=== PATIENT | female | born 1985 | race Caucasian/White ===

== ENCOUNTER 2016-08-26 09:23 | Emergency (ER) | payer OTHER ==
[2016-08-26 10:08] VITALS: BP 123/75
--- NOTE | 2016-08-26 10:11 | UC ---
Respiratory Complaint HPI - HPI Summary HPI Summary: FEVER, CHILLS C 1 DAYS + SORE THROAT , COUGH BODY ACHES - History of Current Complaint Chief Complaint: UCGeneralIllness Stated Complaint: FLU SYMPTOMS Time Seen by Provider: 08/26/16 09:59 Hx Obtained From: Patient Hx Last Menstrual Period: 08/12/16 Onset/Duration: Sudden Onset, Lasting Days - 1, Still Present Timing: Constant Severity Initially: Severe Severity Currently: Severe Character: Cough: Nonproductive Aggravating Factors: Deep Breaths Alleviating Factors: Nothing Associated Signs And Symptoms: Positive: Fever, Chills. Negative: Dyspnea, Pleuritic Chest Pain, Wheezing, Hemoptysis, Dizziness, Calf Pain, Calf Swelling , Edema, URI, Nasal Congestion - Allergies/Home Medications Allergies/Adverse Reactions: Allergies Allergy/AdvReac Type Severity Reaction Status Date / Time No Known Allergies Allergy Verified 03/07/15 13:16 PMH/Surg Hx/FS Hx/Imm Hx Endocrine History Of: Denies: Diabetes, Thyroid Disease Cardiovascular History Of: Denies: Cardiac Disorders, Hypertension Respiratory History Of: Denies: COPD, Asthma GI/ History Of: Denies: Ulcer - Surgical History Surgical History: Yes Surgery Procedure, Year, and Place: LEFT NEPHRECTOMY - Family History Known Family History: Negative: Diabetes - Social History Alcohol Use: Occasionally Substance Use Type: None Smoking Status (MU): Former Smoker Type: Cigarettes Amount Used/How Often: 1/4 ppd Have You Smoked in the Last Year: Yes When Did the Patient Quit Smoking/Using Tobacco: Past year-2016 Review of Systems Constitutional: Fever, Chills, Fatigue Skin: Negative Eyes: Negative ENT: Sore Throat Respiratory: Cough Cardiovascular: Negative Gastrointestinal: Negative Genitourinary: Negative All Other Systems Reviewed And Are Negative: Yes Physical Exam Triage Information Reviewed: Yes Appearance: Well-Nourished, Ill-Appearing Vital Signs: Initial Vital Signs Temp 102 F 08/26/16 09:56 Pulse 106 08/26/16 09:56 Resp 16 08/26/16 09:56 BP 123/75 08/26/16 09:56 Pulse Ox 98 08/26/16 09:56 Vital Signs Reviewed: Yes Eyes: Positive: Conjunctiva Clear ENT: Positive: Normal ENT inspection, Hearing grossly normal, Pharynx normal, TMs normal. Negative: Pharyngeal erythema, Nasal congestion, Nasal drainage Neck: Positive: Supple, Nontender, No Lymphadenopathy Respiratory: Positive: Chest non-tender, Lungs clear, Normal breath sounds Cardiovascular: Positive: Tachycardia Abdominal Exam: Normal Abdomen Description: Positive: Nontender, Soft. Negative: CVA Tenderness (R), CVA Tenderness (L), Distended, Guarding Bowel Sounds: Positive: Present UC Diagnostic Evaluation - Laboratory O2 Sat by Pulse Oximetry: 98 Respiratory Course/Dx - Differential Dx/Diagnosis Provider Diagnoses: INFLUENZA Discharge - Discharge Plan Condition: Stable Disposition: HOME Prescriptions: Oseltamivir Phosphate [Tamiflu] 75 mg PO BID #10 cap Patient Education Materials: Influenza (ED) Referrals: Maximiliano Medina MD [Primary Care Provider] - If Needed
== END 2016-08-26 10:41 | disposition home or self-care (01) ==
LOC: UCCORT 09:23
DX: J11.1 Influenza due to unidentified influenza virus with other respiratory manifestations (principal); Z87.891 Personal history of nicotine dependence
CPT/HCPCS: 87502; 99212; G0463

== ENCOUNTER 2017-03-17 20:57 | Emergency (ER) | payer OTHER ==
[2017-03-17 21:07] VITALS: BP 121/87
--- NOTE | 2017-03-17 21:11 | UC ---
Throat Pain/Nasal Gunner HPI - HPI Summary HPI Summary: 31 YEAR OLD FEMALE PRESENTS WITH COMPLAINS OF SORE THROAT. - History of Current Complaint Chief Complaint: UCRespiratory Stated Complaint: SORE THROAT Time Seen by Provider: 03/17/17 21:11 Hx Last Menstrual Period: 02/26/15 Onset/Duration: Sudden Onset Severity: Moderate Pain Scale Used: 0-10 Numeric - 5 Cough: Nonproductive Associated Signs & Symptoms: Positive: Dysphagia - Allergies/Home Medications Allergies/Adverse Reactions: Allergies Allergy/AdvReac Type Severity Reaction Status Date / Time No Known Allergies Allergy Verified 03/17/17 21:07 Home Medications: Home Medications buPROPion SR TAB* [Wellbutrin SR TAB*] 100 mg PO DAILY 03/17/17 [History Confirmed 03/17/17] PMH/Surg Hx/FS Hx/Imm Hx Previously Healthy: Yes - Surgical History Surgical History: Yes Surgery Procedure, Year, and Place: LEFT NEPHRECTOMY - Family History Known Family History: Negative: Diabetes - Social History Alcohol Use: Occasionally Substance Use Type: None Smoking Status (MU): Light Every Day Tobacco Smoker Type: Cigarettes Amount Used/How Often: 1/4 ppd Have You Smoked in the Last Year: Yes When Did the Patient Quit Smoking/Using Tobacco: Past year-2016 Review of Systems Constitutional: Negative Skin: Negative Eyes: Negative ENT: Negative Respiratory: Negative Cardiovascular: Negative Gastrointestinal: Negative Genitourinary: Negative Motor: Negative Neurovascular: Negative Musculoskeletal: Negative Neurological: Negative Psychological: Negative All Other Systems Reviewed And Are Negative: Yes Physical Exam Triage Information Reviewed: Yes Vital Signs: Initial Vital Signs Temp 36.8 C 03/17/17 21:04 Pulse 96 03/17/17 21:04 Resp 14 03/17/17 21:04 BP 121/87 03/17/17 21:04 Pulse Ox 100 03/17/17 21:04 Eye Exam: Normal ENT: Positive: Pharyngeal erythema, Nasal congestion, Nasal drainage Dental Exam: Normal Neck exam: Normal Neck: Positive: 1 Respiratory Exam: Normal Cardiovascular Exam: Normal Abdominal Exam: Normal Musculoskeletal Exam: Normal Neurological Exam: Normal Psychological Exam: Normal Skin Exam: Normal Throat Pain/Nasal Course/Dx - Differential Dx/Diagnosis Provider Diagnoses: ALLERGIC RHINNITIS. PHARYNGITIS Discharge - Discharge Plan Condition: Stable Disposition: HOME Prescriptions: Amoxicillin PO (*) [Amoxicillin 500 MG CAP*] 500 mg PO TID #30 cap LoraTADine TAB(NF) [Claritin 10 MG TAB(NF)] 10 mg PO DAILY #30 tab Magic M W2 Juan Diego/Maal/Nyst/Lido* 15 ml SWISH SPIT QID #120 ml Patient Education Materials: Pharyngitis (ED) Referrals: Maximiliano Medina MD [Primary Care Provider] - If Needed
[2017-03-17] MEDS ORDERED: Lidocaine 2% VISCOUS* 15 ML UDC SWISH SPIT ONE (21:27)
[2017-03-17] MEDS ORDERED: LoraTADine TAB(NF) 10 MG TAB (AUTOSUB to CETIRIZINE) PO ONE (21:28)
== END 2017-03-17 21:50 | disposition home or self-care (01) ==
LOC: UCCORT 20:57
DX: J30.9 Allergic rhinitis, unspecified (principal); J02.9 Acute pharyngitis, unspecified; F17.210 Nicotine dependence, cigarettes, uncomplicated
CPT/HCPCS: 87651; 99212; A9270-GY; G0463

== ENCOUNTER 2017-12-29 18:40 | Emergency (ER) | payer OTHER ==
[2017-12-29 19:42] VITALS: BP 126/92
--- NOTE | 2017-12-29 19:48 | UC ---
Throat Pain/Nasal Gunner HPI - HPI Summary HPI Summary: 32 yo female presents with sinus pain/pressure/congestion and a painful lump behind her right ear. Has not taken anything OTC. Daughter was recently dx'd with strep. Denies fever, chills, sore throat, cough, SOB, chest pain, weight loss, headache, dizziness, night sweats. Last saw PCP a few weeks ago for a routine appt and had labwork done - but says a CBC was not included. - History of Current Complaint Chief Complaint: UCGeneralIllness Stated Complaint: SINUS CONGESTION Time Seen by Provider: 12/29/17 19:48 Hx Obtained From: Patient Hx Last Menstrual Period: 12/01/17 Onset/Duration: Gradual Onset Severity: Mild Pain Intensity: 4 Pain Scale Used: 0-10 Numeric - Allergies/Home Medications Allergies/Adverse Reactions: Allergies Allergy/AdvReac Type Severity Reaction Status Date / Time No Known Allergies Allergy Verified 12/29/17 19:42 PMH/Surg Hx/FS Hx/Imm Hx Previously Healthy: Yes Psychological History: Anxiety - Surgical History Surgical History: Yes Surgery Procedure, Year, and Place: LEFT NEPHRECTOMY - Family History Known Family History: Negative: Diabetes - Social History Occupation: Employed Full-time Lives: With Family Alcohol Use: Occasionally Substance Use Type: None Smoking Status (MU): Former Smoker Type: Cigarettes Amount Used/How Often: 1/4 ppd Have You Smoked in the Last Year: Yes When Did the Patient Quit Smoking/Using Tobacco: Past year-2016 Review of Systems Constitutional: Negative Skin: Negative Eyes: Negative ENT: Nasal Discharge, Sinus Congestion, Sinus Pain/Tenderness Respiratory: Negative Cardiovascular: Negative Gastrointestinal: Negative Neurovascular: Negative Neurological: Negative Psychological: Negative All Other Systems Reviewed And Are Negative: Yes Physical Exam - Summary Physical Exam Summary: GENERAL: NAD. WDWN. No pain distress. SKIN: No rashes, sores, lesions, or open wounds. HEENT: Head: AT/NC Eyes: Conjunctiva clear without inflammation or discharge. Ears: RIGHT Post-auricular 5mm lymph node mildly TTP. Immobile and hard. No fluctuance, erythema, or induration. Hearing grossly normal. TMs intact , no bulging, erythema, or edema. Nose: Nasal mucosa pink and moist. NTTP maxillary and frontal sinus. Throat: Posterior oropharynx moderate erythema. No tonsillar enlargement. No exudates. Uvula midline. No hoarse voice or muffled voice. NECK: Supple. Nontender. No lymphadenopathy. CHEST: CTAB. No r/r/w. No accessory muscle use. Breathing comfortably and in no distress. CV: RRR. Without m/r/g. Pulses intact. Brisk cap refill. NEURO: Alert. CN II-XII grossly intact. PSYCH: Age appropriate behavior. Triage Information Reviewed: Yes Vital Signs: Initial Vital Signs Temp 99.3 F 12/29/17 19:36 Pulse 94 12/29/17 19:36 Resp 18 12/29/17 19:36 BP 126/92 12/29/17 19:36 Pulse Ox 100 12/29/17 19:36 Throat Pain/Nasal Course/Dx - Course Course Of Treatment: POC strep negative. Draw for CBC and monitor lymph node - if no improvement schedule a f/u with PCP. - Differential Dx/Diagnosis Provider Diagnoses: Pharyngitis. Enlarged post auricular lymph node Discharge - Sign-Out/Discharge Documenting (check all that apply): Discharge/Admit/Transfer - Discharge Plan Condition: Stable Disposition: HOME Prescriptions: Amoxicillin PO (*) [Amoxicillin 500 MG CAP*] 500 mg PO Q12H #20 cap Patient Education Materials: Sinusitis (ED) Referrals: Maximiliano Medina MD [Primary Care Provider] - Additional Instructions: If you develop a fever, shortness of breath, chest pain, new or worsening symptoms - please call your PCP or go to the ED. 1) Monitor the lymph node behind your right ear for increasing size. If this does not improve within 1 month OR if it gets larger/painful - please schedule a follow up with your PCP. - Billing Disposition and Condition Condition: STABLE Disposition: HOME
[2017-12-30 10:41] LABS: ABS Basophils 0.1 10^3/ul (0-0.2); ABS Eosinophils 0.1 10^3/ul (0-0.6); ABS Lymphocytes 3.4 10^3/ul (1.0-4.8); ABS Monocytes 0.5 10^3/ul (0-0.8); ABS Neutrophils 3.2 10^3/ul (1.5-7.7); ABS Nucleated RBC 0 10^3/ul; Eosinophil % 1.6 % (0-6); Hematocrit 43 % (35-47); Hemoglobin 14.7 g/dl (12.0-16.0); Lymphocyte % 46.7 % (25-47); Mean Corpuscular HGB Conc 34 g/dl (31-36); Mean Corpuscular Hemoglobin 31 pg (27-31); Mean Corpuscular Volume 90 fL (80-97); Mean Platelet Volume 10.2 um3 (7.4-10.4); Nucleated Red Blood Cells % 0.1; Platelet Count 214 10^3/ul (150-450); Red Cell Distribution Width 13 % (10.5-15); White Blood Count 7.2 10^3/ul (3.5-10.8)
== END 2017-12-29 20:35 | disposition home or self-care (01) ==
LOC: UCEAST 18:40
DX: J02.9 Acute pharyngitis, unspecified (principal); R59.0 Localized enlarged lymph nodes; F41.9 Anxiety disorder, unspecified; Z90.5 Acquired absence of kidney; Z87.891 Personal history of nicotine dependence
CPT/HCPCS: 36415; 85025; 87651; 99212; G0463

== ENCOUNTER 2018-07-15 09:23 | Emergency (ER) | payer OTHER ==
[2018-07-15 09:58] VITALS: BP 123/73
[2018-07-15] MEDS ORDERED: Naproxen TAB* 250 MG PO ONE (10:12)
--- NOTE | 2018-07-15 10:20 | UC ---
Cardiac HPI - HPI Summary HPI Summary: 30-year-old female presents with 6 day history of right chest wall pain. States started after she was struck in the right lower chest with her dogs leash when the dog took off to ziggy something. States tender to touch and pain worsens with deep breath. Has taken acetaminophen with some relief in the pain. Denies fever, chills, cough, shortness of breath, abdominal pain, nausea, or vomiting. - History of Current Complaint Chief Complaint: UCUpperExtremity Stated Complaint: RIB PAIN (PULLED BY HER DOG) Time Seen by Provider: 07/15/18 09:57 Hx Obtained From: Patient Hx Last Menstrual Period: 07/14/18 Onset/Duration: Sudden Onset Current Severity: Moderate Pain Intensity: 7 Chest Pain Location: Right Lateral Character: Sharp/Stabbing Aggravating Factor(s): Deep Breaths Alleviating Factor(s): Rest, OTC Meds Associated Signs & Symptoms: Negative: SOB, Fever, Nausea/Vomiting, Cough, Hemoptysis, Abdominal Pain - Allergy/Home Medications Allergies/Adverse Reactions: Allergies Allergy/AdvReac Type Severity Reaction Status Date / Time No Known Allergies Allergy Verified 07/15/18 09:52 Home Medications: Home Medications Acetaminophen [Acetaminophen Extra Strength] 1,000 mg PO Q6H PRN 07/15/18 [ History Confirmed 07/15/18] PMH/Surg Hx/FS Hx/Imm Hx Previously Healthy: Yes Psychological History: Depression - Surgical History Surgical History: Yes Surgery Procedure, Year, and Place: LEFT NEPHRECTOMY - Family History Known Family History: Positive: Non-Contributory - Social History Occupation: Employed Full-time Lives: With Family Alcohol Use: Occasionally Substance Use Type: None Smoking Status (MU): Former Smoker Type: Cigarettes Amount Used/How Often: 1/4 ppd Have You Smoked in the Last Year: Yes When Did the Patient Quit Smoking/Using Tobacco: Past year-2016 Review of Systems All Other Systems Reviewed And Are Negative: Yes Constitutional: Negative: Fever, Chills Skin: Negative: Rash, Bruising Respiratory: Negative: Shortness Of Breath, Cough Cardiovascular: Negative: Palpitations Musculoskeletal: Positive: Other: - Right chest wall pain Is Patient Immunocompromised?: No Physical Exam - Summary Physical Exam Summary: GENERAL APPEARANCE: Well developed, well nourished, alert and cooperative, and appears to be in no acute distress. HEAD: Atraumatic. normocephalic. EYES: PERRL, EOM intact. Vision is grossly intact. NECK: Neck supple, non-tender without lymphadenopathy. CARDIAC: Normal S1 and S2. No S3, S4 or murmurs. Rhythm is regular. There is no peripheral edema, cyanosis or pallor. Extremities are warm and well perfused. Capillary refill is less than 2 seconds. LUNGS: Clear to auscultation and percussion without rales, rhonchi, wheezing or diminished breath sounds. Mild tenderness with palpation to right lateral chest wall. No crepitus, SC emphysema, or bruising noted. ABDOMEN: Positive bowel sounds. Soft, nondistended, nontender. No guarding or rebound. No masses or hepatosplenomegally. MUSKULOSKELETAL: ROM intact to all extremities. No joint erythema or tenderness. Normal muscular development. Normal gait. EXTREMITIES: No significant deformity or joint abnormality. Peripheral pulses intact. SKIN: Skin normal color, texture and turgor with no lesions or eruptions. Triage Information Reviewed: Yes Vital Signs: Initial Vital Signs Temp 98.7 F 07/15/18 09:53 Pulse 84 07/15/18 09:53 Resp 14 07/15/18 09:53 BP 123/73 07/15/18 09:53 Pulse Ox 100 07/15/18 09:53 Vital Signs Reviewed: Yes Diagnostics - Radiology No standard instances Radiology Interpretation Completed By: ED Physician - No acute process. No fracture noted., Radiologist Summary of Radiographic Findings: Patient Name: SHERRIE MCCARTHY Medical Record#: [id number]. Ordering Physician: Marino Galarza AIR TRAFFIC CONTROL OPERATOR Acct.#: [id number]. : 1985 Age: 32 Sex: F Location: [facility]. Exam Date: 07/15/18 1012 ADM Status: REG ER. Order Information: CHEST PA LAT 2 VWS. Accession Number: [id number]. CPT: 37209. HISTORY: Right chest wall pain. COMPARISONS: None. VIEWS: 4: Frontal dual-energy and lateral views of the chest. FINDINGS: CARDIOMEDIASTINAL SILHOUETTE: The cardiomediastinal silhouette is normal. YOSVANY: The yosvany are normal. PLEURA: The costophrenic angles are sharp. No pleural abnormalities are noted. LUNG PARENCHYMA: The lungs are clear. ABDOMEN: The upper abdomen is clear. There is no subphrenic gas. BONES AND SOFT TISSUES: No bone or soft tissue abnormalities are noted. OTHER: None. IMPRESSION: NO ACTIVE CARDIOPULMONARY DISEASE. - Assessment/Plan Course Of Treatment: 30-year-old female presents with 6 day history of right chest wall pain. States started after she was struck in the right lower chest with her dogs leash when the dog took off to ziggy something. States tender to touch and pain worsens with deep breath. Has taken acetaminophen with some relief in the pain. Denies fever, chills, cough, shortness of breath, abdominal pain, nausea, or vomiting. Afebrile. VSS. Exam unremarkable. CXR normal. Recommend conservative treatment for chest wall contussion including deep breathing exercises. She is to follow up with her PCP in 7 days if symptoms persist. Warning symptoms reviewed. Verbalizes understanding and agrees with POC. - Differential Diagnoses - Chest Pain Differential Diagnosis/HQI/PQRI: Chest Wall, Other: - Rib fracture, pneumonia - Clinical Impression Provider Diagnosis: Right-sided chest wall pain Discharge - Sign-Out/Discharge Documenting (check all that apply): Patient Departure All imaging exams completed and their final reports reviewed: Yes - Discharge Plan Condition: Stable Disposition: HOME Prescriptions: Naproxen [Naproxen 500 mg tab] 500 mg PO Q12HR PRN #30 tablet PRN Reason: Pain Patient Education Materials: Chest Wall Pain (ED) Referrals: Maximiliano Medina MD [Primary Care Provider] - 7 Days (If symptoms persist.) Additional Instructions: The chest x-ray performed in the clinic today was normal. There was no evidence of a rib fracture however there is a chance of a subtle fracture that cannot be seen with a plain chest x-ray. Take naproxen 1 tab every 12 hours as needed for pain. Be sure to take with food to avoid upset stomach. Make sure you are taking several deep breaths every 1-2 hours while awake to prevent pneumonia. Follow up with your primary care provider in 7 days if symptoms persist. Seek immediate medical attention in the emergency room if you develop fever greater than 100.5 F, have worsening chest pain, difficulty breathing, abdominal pain, or any worsening of symptoms. - Billing Disposition and Condition Condition: STABLE Disposition: Home
== END 2018-07-15 10:55 | disposition home or self-care (01) ==
LOC: UCCORT 09:23
DX: R07.89 Other chest pain (principal); W20.8XXA Other cause of strike by thrown, projected or falling object, initial encounter; Y93.K1 Activity, walking an animal; Y92.9 Unspecified place or not applicable; Z87.891 Personal history of nicotine dependence
CPT/HCPCS: 71046; 99212; G0463